=== PATIENT | female | born 1965 | race Caucasian/White ===

== ENCOUNTER → 2021-09-27 10:27 | Outpatient (BNVA) | payer OTHER, SELFPAY | PROVIDERS: PCP Nurse Practitioner Family; Visit Provider Urology | DX: N32.81 Overactive bladder (principal); N39.41 Urge incontinence | CPT/HCPCS: 51798; 99212 ==

== ENCOUNTER → 2022-06-28 14:08 | Outpatient (BNVA) | payer OTHER, SELFPAY | PROVIDERS: PCP Nurse Practitioner Family; Visit Provider Urology | DX: N32.81 Overactive bladder (principal); N39.41 Urge incontinence | CPT/HCPCS: 52287; 52310; J0585 ==

== ENCOUNTER → 2022-07-18 11:05 | Outpatient (BNVA) | payer OTHER, SELFPAY | PROVIDERS: PCP Nurse Practitioner Family; Visit Provider Nurse Practitioner Family | DX: N32.81 Overactive bladder (principal); N39.41 Urge incontinence | CPT/HCPCS: 51798; 99212 ==

== ENCOUNTER → 2022-11-16 10:41 | Outpatient (BNVA) | payer OTHER, SELFPAY | PROVIDERS: PCP Nurse Practitioner Family; Visit Provider Nurse Practitioner Family | DX: N32.81 Overactive bladder (principal) | CPT/HCPCS: 51798; 99212 ==

== ENCOUNTER → 2023-01-19 14:51 | Outpatient (BNVA) | payer OTHER, SELFPAY | PROVIDERS: PCP Nurse Practitioner Family; Visit Provider Urology ==

== ENCOUNTER 2023-03-30 15:08 | Outpatient (AMB) | payer OTHER, SELFPAY ==
--- NOTE | 2023-03-30 15:13 | A.OFFVIS_ITS ---
Intake Intake Visit Reasons: Cysto/Botox Injection Intake Note: Patient presents today for a CYSTOSCOPY/BOTOX INJ Procedure: Meds: None Allergies to Antibiotic: No Known Allergies Blood Thinner: None Urinalysis test clear for Cysto? Disposable Uro-N Cystoscope Cannula: Lot: [id number] Exp: 09/04/2023 Blasting Machine Operator Required: No Accompanied by: Self / Same As Patient Allergies codeine [CODEINE] Allergy (Intermediate, Verified 03/30/23 15:13) NAUSEA lactose [LACTOSE] Allergy (Intermediate, Verified 03/30/23 15:13) ABDOMINAL PAIN sulfamethoxazole [From Bactrim] Allergy (Mild, Verified 03/30/23 15:13) stomach pain trimethoprim [From Bactrim] Allergy (Mild, Verified 03/30/23 15:13) stomach pain diphenhydramine [From BENADRYL] Adverse Reaction (Intermediate, Verified 03/30/23 15:13) HEART RACING Benadryl Allergy (Unknown, Uncoded 03/30/23 15:13) Unknown Lactose Allergy (Unknown, Uncoded 03/30/23 15:13) Unknown HPI HPI Comments History of Present Illness Details Joie is a pleasant female. She is a patient of Dr. Yoon. She seen for the following urologic conditions - urinary urgency - urinary frequency - overactive bladder Here for Botox today UA clear Appears to get 3-4 months in between injections Overactive bladder Previously had Botox treatment prior to COVID Was meant to receive follow-up therapy however delayed due to COVID outbreak Previously discussed InterStim Previous therapy includes oxybutynin, tolterodine, VESIcare Side effects include dry mouth and constipation Botox 06/27, 03/28 [facility] Medical History ADHD Anemia Anxiety Bladder hypertonicity Elevated blood pressure reading High cholesterol IBS (irritable bowel syndrome) Urgency incontinence Surgical History History of surgery Review of Systems Const Denies chills and Denies fever(s) Card Reports no additional complaints and Denies syncope Resp Denies cough GI Denies abdominal pain and Denies heartburn Reports as per HPI and Denies change in libido Neuro Denies syncope Psych Denies change in libido Endo Denies change in libido Physical Exam Const General: cooperative, healthy appearing, comfortable and no acute distress Orientation/consciousness: patient oriented x3 HEENT Face and sinus: Yes normal facial exam Mouth: moist mucous membranes Neck Neck: Yes normal visual inspection, Yes full ROM and Yes trachea midline Chest Chest palpation & inspection: normal inspection of the chest Resp Effort & Inspection: normal respiratory effort, able to speak in complete sentences and no respiratory distress GI Inspection: Yes normal to inspection Back/Spine/Pelvis Cervical Spine: normal cervical lordosis Thoracic/Lumbar Spine: thoracic and lumbar spine normal to inspection Skin General skin exam: no rashes or lesions noted Neuro General: patient oriented x3, gait normal, tone normal and moves all extremities Extrem General: Yes normal to inspection and Yes capillary refill normal Office Procedures Cystoscopy Consent Discussed risk and benefit or proposed procedure with the patient. Information consent for procedure given to the patient. Discussed technical aspects, risks, benefits and alternatives in full. Addressed all of the patient's questions and concerns regarding the procedure. The patient demonstrated knowledge and understanding. They wish to proceed with this procedure. Preparation The patient was prepped in the usual manner. A tree feller operator was present and in the room. Genitalia was prepped with betadine solution in a sterile manner. Lidocaine Jelly 2% was placed into the urethra and 16Fr flexible Olympus cystoscope was inserted into the meatus after adequate lubrication. Procedure Cystoscopy performed with 16 [place] cystoscope. Bladder had been prepped with lidocaine and lidocaine jelly placement 15 minutes prior to procedure. Antibiotics were administrated for 2 days prior to procedure. UA has been performed and shows no evidence of infection. Bladder was emptied of urine. Bladder was refilled. Using 100 units of Botox mixed in 10 cc of normal saline injections were placed at the back wall of the bladder. 0.5cc placed at each injection site. Injections were placed in a grid 5 across and 4 high. Injections were placed from the inferior to superior position. Trabeculations on the bladder wall were targeted if present. Procedure was tolerated well. 2 week follow-up for PVR Botox code - Lot [id number] - Botox Injection, urethra or bladder Procedure code (CPT) selection complete Office Meds lidocaine HCl Performing Provider: Aristeo Ferraro MD Documented (not given) by: Aristeo Ferraro MD on 03/30/23 15:46 Dose Route Admin Location Lot Number Expiration Date NDC Residential Driver 10 mL intra-urethral Assessment & Plan Assessment & Plan (1) Overactive bladder: Code(s): N32.81 - Overactive bladder Plan Botox stone 2 week follow-up ultrasound Orders: Orders AMB Cystoscopy 03/30/23 N32.81 - Overactive bladder AMB Urinalysis Automated 03/30/23 Z13.9 - Encounter for screening, unspecified Medications: New lidocaine HCl 2% 10 mL intra-urethral ONCE 10 mL 0RF N32.81 - Overactive bladder Patient Instructions: Imaging studies, laboratory and physical exam results were discussed and reviewed in detail. No major barriers to patient understanding were identified. An opportunity to ask questions regarding the treatment plan was provided. All questions were answered. The patient expressed understanding and agreement with the above treatment plan. The patient is aware they should contact our office by phone for worsening of their current condition or the appearance of new urologic symptoms. Compliance is encouraged with any medications and followup testing that is ordered. It is a privilege to participate in the urologic care of your patient. If you have any questions or concerns regarding treatment for the above conditions, or other urologic issues, please do not hesitate to contact me. The office telephone contact is [phone]. This note is constructed using voice recognition software. While every effort has been made to ensure accuracy unit operator errors may have been included. Yours sincerely, Dr Aristeo Ferraro MD, [facility] - Urology Providers of Expert, Compassionate Care for the Genitourinary System Coding Level of Care Code Procedure Only Diagnoses Overactive bladder N32.81 CPT Codes Cystoscopy - CPT: 69878 - Botox Injection, urethra or bladder ([id number])
== END 2023-03-30 16:10 | disposition home or self-care (01) ==
PROVIDERS: PCP Nurse Practitioner Family; Visit Provider Urology
DX: N32.81 Overactive bladder (principal)
CPT/HCPCS: 52287

== ENCOUNTER → 2023-03-30 15:08 | Outpatient (BNVA) | payer OTHER, SELFPAY | PROVIDERS: PCP Nurse Practitioner Family; Visit Provider Urology ==

== ENCOUNTER → 2023-04-30 10:12 | Outpatient (BNVA) | payer OTHER, SELFPAY | PROVIDERS: PCP Nurse Practitioner Family; Visit Provider Urology | DX: N32.81 Overactive bladder (principal) | CPT/HCPCS: 51798 ==

== ENCOUNTER 2023-08-31 14:15 | Outpatient (AMB) | payer OTHER, SELFPAY ==
--- NOTE | 2023-08-31 14:18 | MHC.OFFVIS ---
Intake Intake Visit Reasons: 4m/OAB/PVR Intake Note: Patient is Present for Follow Up PVR Urology Medication: Botox Injection Antibiotic Allergies: Sulfa, Trimethoprim, Blood Thinners: none PVR: 0 Patient states that she has been doing fine. She states that she does see improvement after previous botox injection in March 2023. Allergies codeine [CODEINE] Allergy (Intermediate, Verified 03/30/23 15:13) NAUSEA lactose [LACTOSE] Allergy (Intermediate, Verified 03/30/23 15:13) ABDOMINAL PAIN sulfamethoxazole [From Bactrim] Allergy (Mild, Verified 03/30/23 15:13) stomach pain trimethoprim [From Bactrim] Allergy (Mild, Verified 03/30/23 15:13) stomach pain diphenhydramine [From BENADRYL] Adverse Reaction (Intermediate, Verified 03/30/23 15:13) HEART RACING Benadryl Allergy (Unknown, Uncoded 03/30/23 15:13) Unknown Lactose Allergy (Unknown, Uncoded 03/30/23 15:13) Unknown Medication List - Last Reconciled 08/31/23 by Aristeo Ferraro MD atorvastatin 80 mg PO DAILY blood sugar diagnostic (FreeStyle Lite Strips) As directed ciprofloxacin HCl (Cipro) 500 mg PO BID 5 days diazepam 5 mg PO DAILY ferrous sulfate ER (Slow Release Iron) 140 mg PO DAILY hydrochlorothiazide 12.5 mg PO DAILY insulin glargine (Lantus Solostar U-100 Insulin) 10 units subcut BEDTIME losartan 50 mg PO DAILY methylphenidate HCl 20 mg PO DAILY omeprazole 20 mg PO DAILY paroxetine HCl 30 mg PO DAILY pen needle, diabetic (BD Chuyita 2nd Gen Pen Needle) As directed HPI HPI Comments History of Present Illness Details Joie is a pleasant female. She is a patient of Dr. Yoon. She seen for the following urologic conditions - urinary urgency - urinary frequency - overactive bladder Discussed trial InterSti again Has a number of back issue so would prefer to stick with Botox Plan for late September Antibiotic prescription provided Overactive bladder Previously had Botox treatment prior to COVID Was meant to receive follow-up therapy however delayed due to COVID outbreak Previously discussed InterStim Previous therapy includes oxybutynin, tolterodine, VESIcare Side effects include dry mouth and constipation Botox 06/27, 03/28 [facility] Medical History ADHD Anemia Anxiety Bladder hypertonicity Elevated blood pressure reading High cholesterol IBS (irritable bowel syndrome) Urgency incontinence Surgical History History of surgery Review of Systems Const Denies chills and Denies fever(s) Card Reports no additional complaints and Denies syncope Resp Denies cough GI Denies abdominal pain and Denies heartburn Reports as per HPI and Denies change in libido Neuro Denies syncope Psych Denies change in libido Endo Denies change in libido Physical Exam Const General: cooperative, healthy appearing, comfortable and no acute distress Orientation/consciousness: patient oriented x3 HEENT Face and sinus: Yes normal facial exam Mouth: moist mucous membranes Neck Neck: Yes normal visual inspection, Yes full ROM and Yes trachea midline Chest Chest palpation & inspection: normal inspection of the chest Resp Effort & Inspection: normal respiratory effort, able to speak in complete sentences and no respiratory distress GI Inspection: Yes normal to inspection Back/Spine/Pelvis Cervical Spine: normal cervical lordosis Thoracic/Lumbar Spine: thoracic and lumbar spine normal to inspection Skin General skin exam: no rashes or lesions noted Neuro General: patient oriented x3, gait normal, tone normal and moves all extremities Extrem General: Yes normal to inspection and Yes capillary refill normal Office Procedures Post Void Residual Post Residual Void Post Void Residual (PVR): 0 [id number] Void Residual by ultrasound Assessment & Plan Assessment & Plan (1) Overactive bladder: Code(s): N32.81 - Overactive bladder (2) Urgency incontinence: Code(s): N39.41 - Urge incontinence Plan Plan for Botox in late September Orders: Orders AMB Post Void Residual by ultrasound Today N32.81 - Overactive bladder Medications: Refilled ciprofloxacin HCl (Cipro) begin 2 days prior to procedure 500 mg PO BID 5 days 10 tabs 0RF N32.81 - Overactive bladder Patient Instructions: Imaging studies, laboratory and physical exam results were discussed and reviewed in detail. No major barriers to patient understanding were identified. An opportunity to ask questions regarding the treatment plan was provided. All questions were answered. The patient expressed understanding and agreement with the above treatment plan. The patient is aware they should contact our office by phone for worsening of their current condition or the appearance of new urologic symptoms. Compliance is encouraged with any medications and followup testing that is ordered. It is a privilege to participate in the urologic care of your patient. If you have any questions or concerns regarding treatment for the above conditions, or other urologic issues, please do not hesitate to contact me. The office telephone contact is [phone]. This note is constructed using voice recognition software. While every effort has been made to ensure accuracy heavy equipment service technician errors may have been included. Yours sincerely, Dr Aristeo Ferraro MD, [facility] - Urology Providers of Expert, Compassionate Care for the Genitourinary System Coding Level of Care Code Est Pt Level 4 (98852) Diagnoses Overactive bladder N32.81 Urgency incontinence N39.41 CPT Codes Post Residual Void - PVR CPT Code: 36872-Dfok Void Residual by ultrasound ([id number])
== END 2023-08-31 14:38 | disposition home or self-care (01) ==
PROVIDERS: PCP Nurse Practitioner Family; Visit Provider Urology
DX: N32.81 Overactive bladder (principal); N39.41 Urge incontinence
CPT/HCPCS: 99214

== ENCOUNTER → 2023-08-31 14:15 | Outpatient (BNVA) | payer OTHER, SELFPAY | PROVIDERS: PCP Nurse Practitioner Family; Visit Provider Urology | DX: N32.81 Overactive bladder (principal); N39.41 Urge incontinence | CPT/HCPCS: 51798; 99212 ==

== ENCOUNTER 2024-01-01 11:18 | Outpatient (AMB) | payer OTHER, SELFPAY ==
--- NOTE | 2024-01-01 11:20 | A.OFFVIS_ITS ---
Intake Visit Reasons: Botox (PA SET) Intake Note: Patient presents today for a CYSTOSCOPY/BOTOX INJ Procedure: Meds: Botox Allergies to Antibiotic: Sulfa & Bactrim Blood Thinner: None Urinalysis test clear for Cysto? 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 Accompanied by: Self / Same As Patient Allergies codeine [CODEINE] Allergy (Intermediate, Verified 03/30/23 15:13) NAUSEA lactose [LACTOSE] Allergy (Intermediate, Verified 03/30/23 15:13) ABDOMINAL PAIN sulfamethoxazole [From Bactrim] Allergy (Mild, Verified 03/30/23 15:13) stomach pain trimethoprim [From Bactrim] Allergy (Mild, Verified 03/30/23 15:13) stomach pain diphenhydramine [From BENADRYL] Adverse Reaction (Intermediate, Verified 03/30/23 15:13) HEART RACING Benadryl Allergy (Unknown, Uncoded 03/30/23 15:13) Unknown Lactose Allergy (Unknown, Uncoded 03/30/23 15:13) Unknown HPI Comments Details: Joie is a pleasant female. She is a patient of Dr. Yoon. She seen for the following urologic conditions - urinary urgency - urinary frequency - overactive bladder Here for Botox Had previously discussed InterStim however has had prior back issues Antibiotics Overactive bladder Previously had Botox treatment prior to COVID Was meant to receive follow-up therapy however delayed due to COVID outbreak Previously discussed InterStim Previous therapy includes oxybutynin, tolterodine, VESIcare Side effects include dry mouth and constipation Botox 06/27, 03/28, 08/29 [facility] Medical History Anemia IBS (irritable bowel syndrome) High cholesterol ADHD Anxiety Elevated blood pressure reading Urgency incontinence Bladder hypertonicity Surgical History History of surgery Review of Systems Const Denies chills and Denies fever(s) Card Reports no additional complaints and Denies syncope Resp Denies cough GI Denies abdominal pain and Denies heartburn Reports as per HPI and Denies change in libido Neuro Denies syncope Psych Denies change in libido Endo Denies change in libido Physical Exam Const General: cooperative, healthy appearing, comfortable and no acute distress Orientation/consciousness: patient oriented x3 HEENT Face and sinus: Yes normal facial exam Mouth: moist mucous membranes Neck Neck: Yes normal visual inspection, Yes full ROM and Yes trachea midline Chest Chest palpation & inspection: normal inspection of the chest Resp Effort & Inspection: normal respiratory effort, able to speak in complete sentences and no respiratory distress GI Inspection: Yes normal to inspection Back/Spine/Pelvis Cervical Spine: normal cervical lordosis Thoracic/Lumbar Spine: thoracic and lumbar spine normal to inspection Skin General skin exam: no rashes or lesions noted Neuro General: patient oriented x3, gait normal, tone normal and moves all extremities Extrem General: Yes normal to inspection and Yes capillary refill normal Office Procedures Cystoscopy Consent Discussed risk and benefit or proposed procedure with the patient. Information consent for procedure given to the patient. Discussed technical aspects, risks, benefits and alternatives in full. Addressed all of the patient's questions and concerns regarding the procedure. The patient demonstrated knowledge and understanding. They wish to proceed with this procedure. Preparation The patient was prepped in the usual manner. A engine cleaner was present and in the room. Genitalia was prepped with betadine solution in a sterile manner. Lidocaine Jelly 2% was placed into the urethra and 16Fr flexible Olympus c ystoscope was inserted into the meatus after adequate lubrication. Procedure Patient prepped for botox injection- 16 fr straight catheter inserted and used to instill: 20 mls bupivicaine 0.50% 5 mls lidocaine 2% 2 lidocaine urojets (20mls) 10mls normal saline mixed with botox solution given to Dr. Ferraro for injection Cystoscopy performed with 16 Romansh cystoscope. Bladder had been prepped with lidocaine and lidocaine jelly placement 15 minutes prior to procedure. Antibiotics were administrated for 2 days prior to procedure. UA has been perf ormed and shows no evidence of infection. Bladder was emptied of urine. Bladder was refilled. Using 100 units of Botox mixed in 10 cc of normal saline injections were placed at the back wall of the bladder. 0.5cc placed at each injection site. Injections were placed in a grid 5 across and 4 high. Injections were placed from the inferior to superior position. Trabeculations on the bladder wall were targeted if present. Procedure was tolerated well. 2 week follow-up for PVR [id number] - Botox Injection, urethra or bladder DISPOSABLE SCOPE URO-N NEEDLE SCOPE Procedure code (CPT) selection complete Results AMB Urinalysis, Automated UA Leukoctes 0 Arpan/uL Last Edit by Adan Mccarthy Sindy on 01/01/24 11:41 UA Nitrite Negative Last Edit by Adan Mccarthy [facility] on 01/01/24 11:41 UA Urobilinogen 0.2 mg/dL Last Edit by Adan Mccarthy [facility] on 01/01/24 11:4 1 UA Protein 0 mg/dL Last Edit by Adan Mccarthy [facility] on 01/01/24 11:41 UA pH 6.0 Last Edit by Adan Mccarthy [facility] on 01/01/24 11:41 UA Blood 0 Vicente/uL Last Edit by Adan Mccarthy [facility] on 01/01/24 11:41 UA Specific Starbuck 1.005 Last Edit by Adan Mccarthy [facility] on 01/01/24 11: 41 UA Ketone Negative Last Edit by Adan Mccarthy [facility] on 01/01/24 11:41 UA Bilirubin 0 mg/dL Last Edit by Adan Mccarthy [facility] on 01/01/24 11:41 UA Glucose 0 mg/dL Last Edit by Adan Mccarthy [facility] on 01/01/24 11:41 Results Reviewed Results Reviewed: Laboratory Last Values Urine pH (Auto) 6.0 01/01/24 11:36 Specific Starbuck (Auto) 1.005 01/01/24 11:36 Urine Protein (Auto) 0 mg/dL 01/01/24 11:36 Glucose (UA)(Auto) 0 mg/dL 01/01/24 11:36 Urine Ketones (Auto) Negative 01/01/24 11:36 Urine Blood (Auto) 0 Vicente/uL 01/01/24 11:36 Urine Nitrite (Auto) Negative 01/01/24 11:36 Urine Bilirubin (Auto) 0 mg/dL 01/01/24 11:36 Urine Urobilinogen (Auto) 0.2 mg/dL 01/01/24 11:36 Leukocyte Esterase (Auto) 0 Arpan/uL 01/01/24 11:36 Assessment & Plan Assessment & Plan (1) Overactive bladder: Code(s): N32.81 - Overactive bladder Category: Medical (2) Urgency incontinence: Code(s): N39.41 - Urge incontinence Category: Medical Plan Botox performed Two week follow-up nursing PVR Orders: Orders AMB Urinalysis Automated Today Z13.9 - Encounter for screening, unspecified AMB Cystoscopy Today N32.81 - Overactive bladder Patient Instructions: Imaging studies, laboratory and physical exam results were discussed and reviewed in detail. No major barriers to patient understanding were identified. An opportunity to ask questions regarding the treatment plan was provided. All questions were answered. The patient expressed understanding and agreement with the above treatment plan. The patient is aware they should contact our office by phone for worsening of their current condition or the appearance of new urologic symptoms. Compliance is encouraged with any medications and followup testing that is ordered. It is a privilege to participate in the urologic care of your patient. If you have any questions or concerns regarding treatment for the above conditions, or other urologic issues, please do not hesitate to contact me. The office telephone contact is [phone]. This note is constructed using voice recognition software. While every effort has been made to ensure accuracy rough rice tender errors may have been included. Yours sincerely, Dr Aristeo Ferraro MD, [facility] - Urology Providers of Expert, Compassionate Care for the Genitourinary System Coding Level of Care Code Est Pt Level 3 (75988) Diagnoses Overactive bladder N32.81 Urgency incontinence N39.41 CPT Codes Cystoscopy - CPT: 08296-Qdsqyathex ([id number]) Cystoscopy - CPT: 48118 - Botox Injection, urethra or bladder ([id number])
== END 2024-01-01 12:20 | disposition home or self-care (01) ==
PROVIDERS: PCP Nurse Practitioner Family; Visit Provider Urology
DX: N32.81 Overactive bladder (principal); N39.41 Urge incontinence; Z13.9 Encounter for screening, unspecified
CPT/HCPCS: 52287

== ENCOUNTER → 2024-01-01 11:18 | Outpatient (BNVA) | payer OTHER, SELFPAY | PROVIDERS: PCP Nurse Practitioner Family; Visit Provider Urology | DX: N32.81 Overactive bladder (principal); N39.41 Urge incontinence | CPT/HCPCS: 52287; 81003; J0585; J0665 ==

== ENCOUNTER → 2024-01-21 11:15 | Outpatient (BNVA) | payer OTHER, SELFPAY | PROVIDERS: PCP Nurse Practitioner Family; Visit Provider Urology | DX: N32.81 Overactive bladder (principal) | CPT/HCPCS: 51798 ==